=== PATIENT | male | born 1995 | race Caucasian/White ===

== ENCOUNTER → 2017-07-12 | Outpatient (CLI) | payer BC ==
--- NOTE | 2017-07-12 11:24 | MR ---
EXAMINATION TYPE: MR hip LT wo con DATE OF EXAM: 07/12/2017 COMPARISON: NONE HISTORY: Left hip pain. Standard multiplanar, multisequence MRI departmental protocol Multiplanar, multisequence images of the left hip were acquired. Diffusion weighted imaging was perfo rmed. FINDINGS: The femoral heads maintain a normal rounded morphology with no abnormal bone marrow signal and no flattening to suggest avascular necrosis. No fracture line is identified. Greater trochanter a nd lesser trochanter appear unremarkable. No evidence of stress fracture. The labrum appears intact within the limitations of this nonarthrographic study. Sacroiliac joints ap pear symmetric. No strain is seen of the abductors or iliopsoas muscles. Slight protuberance at the l eft femoral head neck junction relates to mild cam deformity and may predispose the patient to sports management intern al impingement. Nonenlarged superficial inguinal lymph nodes are seen bilaterally. Greatest lymph nod e short axis measures 8 mm. There is minimal increased signal at the insertion site of the gluteus ma ximus and medius relating to mild tendinosis. IMPRESSION: 1. No evidence of fracture, avascular necrosis, or bone marrow altering process. 2. Minimal increased signal at the insertion site of the gluteus wesley and medius relating to mild tendinosis. 3. Slight protuberance of the left femoral head neck junction which can predispose the patient to int ernal impingement.
== END | disposition home or self-care (01) ==
LOC: RADMRIMAIN 08:16
PROVIDERS: ATTEND Family Medicine
DX: R93.7 Abnormal findings on diagnostic imaging of other parts of musculoskeletal system (principal); M25.552 Pain in left hip